=== PATIENT | female | born 2000 | race Caucasian/White ===

== ENCOUNTER 2024-01-20 21:00 | Emergency (ER) | payer BC, SELFPAY ==
[2024-01-20 21:03] VITALS: BP 143/90
[2024-01-20 21:22] VITALS: BMI 23.8
[2024-01-20] MEDS: DELTASONE 50 MG PO (21:43)
[2024-01-20] MEDS: DUONEB 3 ML INH ×2 (21:43→22:33)
--- NOTE | 2024-01-20 21:43 | ED.GENMED ---
History of Present Illness
General
Chief Complaint: Cough
Source: patient
Exam Limitations: none
Time Seen by Provider: 01/20/24 21:09
Nursing documentation reviewed up to this point in time: agreed with
Travel History
Have you had any contact with someone who has COVID-19?: No
Do you have any symptoms of coronavirus? Fever > 100 degrees, chills, cough, shortness of breath, sore throat, loss of taste or smell, muscle aches, or headache?: No
History of Present Illness
History of Present Illness:
23 y/o F with no pmh
recent travel to [place]
while there she got a cough and runny nose
she has had the cough mostly dry but occ productive and when she flew home she went to 4 days ago and was given augmentin and promethazine with codeine syrup
she has had 4 days of abx with no improvement
spastic cough with breathing
has no cp, sob
no hemotpysis
no leg swelling
no fever
no sore throat
was vaccinated for covid
no h/o asthma or smoking
sister whom she was traveling with also got a cough before pt did
Past History
Past History
ED Past Medical History: None
ED Past Surgical History: None
Social History
Tobacco: Non-smoker
Alcohol: None
Drug: None
Personal: Single
Living: with family
Review of Systems
Review of Systems
Allergies reviewed?: Yes
All Other Systems: Not applicable
Phy Exam
Physical Exam
Physical Exam:
GENERAL: Alert , in no apparent distress
EYE: pupils equal and reactive
NECK: Supple
ENT: b/l TM s clear, pharynx erythematous but no tonsillar hypertrophy or exudates
CARDIAC tachycardia no edema
LUNGS: Clear breath sounds bilaterally, no acute respiratory distress, no wheezes/rales/rhonchi, occ cough
ABDOMEN: Soft, without focal tenderness, no r/g, no cvat, normal bowel sounds
NEUROLOGICAL: Alert and oriented, no focal neuro deficits
SKIN: Warm and dry, skin intact.
MUSCULOSKELETAL: No edema, well perfused.
PSYCH: Normal and appropriate interaction.
Course
Orders/Labs/Results
Orders:
Orders
01/20/24 21:24
CR Chest - 2 Views Urgent
Comment:
Reason For Exam: Cough
01/20/24 21:26
COVID-19 Antigen Urgent
Source: Nasal Swab
Influenza A+B Rapid Molecular Urgent
ARTIE Source: Nasal Swab
Specimen Description:
01/20/24 21:40
Ipratropium/Albuterol Sulfate [Duoneb] 3 ml INH R NOW STA
Prednisone [Deltasone] 50 mg PO NOW STA
01/20/24 22:32
Ipratropium/Albuterol Sulfate [Duoneb] 3 ml .ROUTE .STK-MED ONE
Ipratropium/Albuterol Sulfate [Duoneb] 3 ml .ROUTE .STK-MED ONE
Ipratropium/Albuterol Sulfate [Duoneb] 3 ml INH R NOW STA
01/20/24 22:56
Albuterol Nebs [Ventolin Nebules] 2.5 mg .ROUTE .STK-MED ONE
Albuterol Nebs [Ventolin Nebules] 2.5 mg .ROUTE .STK-MED ONE
01/20/24 22:58
Albuterol Nebs [Ventolin Nebules] 2.5 mg INH R NOW STA
Vital Signs
Initial and Last Documented VS:
Initial Vital Signs
Temp Pulse Resp BP Pulse Ox
98.8 F 111 22 143/90 98
01/20/24 21:03 01/20/24 21:03 01/20/24 21:03 01/20/24 21:03 01/20/24 21:03
Last Documented Vital Signs
Temp Pulse Resp BP Pulse Ox
98.8 F 111 22 143/90 98
01/20/24 21:03 01/20/24 21:03 01/20/24 21:03 01/20/24 21:03 01/20/24 22:01
MDM/Problems Addressed
Differential Diagnosis Includes:
RAD, bronchospasm, uri, less likely PE
MDM/Problems Addressed:
23 y/o F
no h/o asthma
8 days cough, not improving despite abx and cough syrup
recent long flights and h/o OCPs but no sob or chest pain
no leg swelling
pt cannot complete a sentence without coughing, seems to be like a cough variant asthma likely caused by viral URI
Initially no wheezing was heard. She was treated with 1 DuoNeb and prednisone and then I was able to hear her wheezing very minimally. Her coughing was still persistent but less. Her chest x-ray was independently reviewed by me and discussed with
radiologist and there were no findings. The patient's cough much improved after a second DuoNeb. She feels much better. She is tachycardic however in the 120s and is likely from multiple doses of albuterol. She again is not reporting any chest
pain or shortness of breath. I am aware of the patient's risk of a DVT because of her oral contraceptives and recent long flight but this is very unlikely given her lack of chest pain or shortness of breath, normal pulse ox and wheezing. Her
sister also had a very similar cough who was traveling with her as well. Patient is COVID and flu are negative. Discussed with ED attending who agrees. Patient was given precautions to return. She was given a nebulizer machine and albuterol,
prednisone
*Critical Care Note
Total Time (30-74mins, 75-104mins- exclusive of procedures): Not Applicable
ED Attending Note
-
Portions of this chart may have been created with voice recognition software.� Occasional wrong word or��sound alike� substitutions may have occurred due to the inherent limitations of voice recognition software.
Discharge Plan
Departure
Patient Disposition: Home (Routine Discharge)
Date of Disposition: 01/20/24
Time of Disposition: 22:58
Patient with high blood pressure during this ER visit?: No
Condition: Fair
Covid-19: Negative COVID-19
Discharge Problem:
Acute upper respiratory infection, Acute bronchospasm
Instructions: Upper Respiratory Infection ED
Prescriptions:
New
prednisone 50 mg tablet
50 mg PO DAILY Qty: 4 0RF
albuterol sulfate [ProAir HFA] 90 mcg/actuation HFA aerosol inhaler
2 puff inhalation Q4HPRN PRN (Reason: shortness of breath) Qty: 6.7 0RF
albuterol sulfate 2.5 mg /3 mL (0.083 %) solution for nebulization
2.5 mg inhalation Q6H PRN (Reason: bronchospasm) Qty: 75 0RF
Referrals:
Hill Conklin MD [Family Provider] - Follow up in 2-3 days
Activity Restrictions/Additional Instructions:
You likely had a virus that is causing some inflammation in your lungs which is causing a frequent cough. You should use the nebulizer machine or the inhaler every 4-6 hours, if you use the nebulizer use 1 Nebules every 4-6 hours and if you use the
inhaler due to puffs every 4-6 hours. Use prednisone once a day for 4 days starting tomorrow.
You can continue the antibiotics although it does not appear that you have any bacterial infection or pneumonia that would require antibiotics but since you were started on them you can continue them. You can use the cough medication as needed.
Please watch out for worsening symptoms like chest pain or shortness of breath. If you get any worse you need to return to the ER.
Interventions
Interventions:
*Risk Screen - Suicide Last Done: 01/20/24 21:03
*General Assessment Last Done: 01/20/24 21:03
*Neglect/Abuse Screening Last Done: 01/20/24 21:03
ED- Fall Risk Assessment Last Done: 01/20/24 21:22
*ED COVID-19 Vaccine History Last Done: 01/20/24 21:22
*Nursing Disposition Last Done: 01/20/24 23:01
ED- Pulmonary Assessment Last Done: 01/20/24 21:23
Discharge Date and Time
Discharge Date/Time: 01/20/24 23:05
Print Language: [id number]
[2024-01-20 21:47] LABS: COVID-19 Antigen Negative (Negative)
[2024-01-20] MEDS: VENTOLIN NEBULES 2.5 MG INH (23:01)
== END 2024-01-20 23:05 | disposition home or self-care (01) ==
LOC: EMR 21:00
PROVIDERS: EMERGENCY PHYSICIAN Emergency Medicine; FAMILY PHYSICIAN Family Medicine
DX: J06.9 Acute upper respiratory infection, unspecified (principal); J98.01 Acute bronchospasm
CPT/HCPCS: 99284; 94640; 71046; 87502; 87811